=== PATIENT | male | born 1975 | race Caucasian/White ===

== ENCOUNTER → 2021-06-10 14:32 | Outpatient (BNVA) | payer MEDICARE, MEDICAID, SELFPAY | PROVIDERS: Family Provider Nurse Practitioner Family; PCP Nurse Practitioner Family; Visit Provider Internal Medicine | DX: E21.3 Hyperparathyroidism, unspecified (principal); Z87.891 Personal history of nicotine dependence | CPT/HCPCS: 99214 ==

== ENCOUNTER 2021-06-10 15:52 | Outpatient (CLI) | payer MEDICARE, MEDICAID, SELFPAY ==
[2021-06-10 16:55] LABS: Ionized Calcium 1.2 mmol/L (1.1-1.4)
[2021-06-10 18:29] LABS: Calcium 9.4 mg/dL (8.5-10.5)
[2021-06-10 18:35] LABS: Parathyroid Hormone 64.8 pg/mL (15-65)
[2021-06-10 20:08] LABS: Anion Gap 16.9 (5-19); Blood Urea Nitrogen 10 mg/dL (6-20); Calcium 9.4 mg/dL (8.5-10.5); Carbon Dioxide 23 mmol/L (22-29); Chloride 104 mmol/L (98-107); Glomerular Filtration Rate 91.3 mL/min (90-130); Glucose 100 mg/dL (65-115); Osmolality Calculated 289 mOsm/kg (285-295); Potassium 3.9 mmol/L (3.5-5.1); Sodium 140 mmol/L (136-145)
[2021-06-10 20:24] LABS: 25 Hydroxy Vitamin D 29 ng/mL (30-100)
== END 2021-06-10 15:53 | disposition home or self-care (01) ==
PROVIDERS: PCP Nurse Practitioner Family; Visit Provider Internal Medicine
DX: E83.51 Hypocalcemia (principal)
CPT/HCPCS: 80048; 82306; 82310; 82330; 83970

== ENCOUNTER → 2022-03-10 08:56 | Outpatient (BNVA) | payer MEDICARE, MEDICAID, SELFPAY | PROVIDERS: PCP Nurse Practitioner Family; Referring Provider Registered Nurse; Visit Provider Orthopaedic Surgery | DX: M25.511 Pain in right shoulder (principal) | CPT/HCPCS: 73030; 99203 ==

== ENCOUNTER 2023-05-12 07:44 | Outpatient (CLI) | payer MEDICARE, MEDICAID, SELFPAY ==
--- NOTE | 2023-05-12 07:50 | MR_ITS ---
WS: [id number] MRI LEFT KNEE NONCONTRAST TECHNIQUE: Axial PD, coronal PD fat sat, coronal PD, sagittal PD, and sagittal PD fat-sat images obta ined. CLINICAL INFORMATION: PAIN OF L KNEE JOINT COMPARISON: None. FINDINGS: Distal quadriceps and patellar tendons are intact. Hypertrophic patella. Moderate suprapatellar effus ion. Lobulated popliteal cyst with a few septations. Popliteal cyst measures 5.1 x 1.7 cm. ACL and PCL are intact. Moderate to severe tricompartmental arthritis advanced for a patient of this age. Advanced joint space narrowing medial joint compartment with subchondral edema in the underlying tibial plateau. Chronic thinning of the medial and lateral meniscus. Complex bucket handle tear post erior horn medial meniscus with a small fragment extending into the posterior intercondylar notch. Grade III chondromalacia patella. Medial and lateral patellar retinaculum are intact. Normal lateral collateral ligament. Normal popliteus. Medial collateral ligament is intact. IMPRESSION: 1. ACL and PCL are intact. 2. Bucket-handle type tear of the posterior horn medial meniscus with fragment extending into the po sterior intercondylar notch. 3. Moderate to severe degenerative arthritis LEFT knee advanced for patient this age. 4. Advanced joint space narrowing medial joint compartment with subchondral edema in the tibial plat eau. Grade IV chondromalacia. 5. Grade III chondromalacia patella. 6. Moderate suprapatellar effusion. Lobulated popliteal cyst measuring 5.0 x 1.7 cm Outbridge grading: grade IV: full-thickness cartilage loss with underlying bone reactive changes
== END 2023-05-12 07:45 | disposition home or self-care (01) ==
LOC: RAD 07:44
PROVIDERS: PCP Nurse Practitioner Family; Visit Provider Nurse Practitioner Family
DX: M25.562 Pain in left knee (principal); S83.212A Bucket-handle tear of medial meniscus, current injury, left knee, initial encounter; X58.XXXA Exposure to other specified factors, initial encounter; M17.12 Unilateral primary osteoarthritis, left knee; M94.262 Chondromalacia, left knee; M71.22 Synovial cyst of popliteal space [Baker], left knee
CPT/HCPCS: 73721

== ENCOUNTER 2023-06-06 11:12 | Outpatient (CLI) | payer MEDICARE, MEDICAID, SELFPAY | END 2023-06-06 11:13 | disposition home or self-care (01) | LOC: SPT 11:12 | PROVIDERS: PCP Nurse Practitioner Family; Visit Provider Nurse Practitioner | DX: Z46.89 Encounter for fitting and adjustment of other specified devices (principal); M25.562 Pain in left knee | CPT/HCPCS: 20610; 97760; 99214; J1100; J2795; J3301; L1812 ==

== ENCOUNTER → 2023-07-18 08:41 | Outpatient (BNVA) | payer MEDICARE, MEDICAID, SELFPAY | PROVIDERS: PCP Nurse Practitioner Family; Visit Provider Nurse Practitioner | DX: M17.12 Unilateral primary osteoarthritis, left knee (principal); M23.321 Other meniscus derangements, posterior horn of medial meniscus, right knee | CPT/HCPCS: 99213 ==

== ENCOUNTER → 2024-12-10 13:47 | Outpatient (BNVA) | payer MEDICARE, MEDICAID, SELFPAY | PROVIDERS: PCP Nurse Practitioner Family; Visit Provider Podiatrist Foot & Ankle Surgery | DX: M79.671 Pain in right foot (principal); M72.2 Plantar fascial fibromatosis; M24.571 Contracture, right ankle | CPT/HCPCS: 73630; 99204 ==

== ENCOUNTER → 2025-01-22 10:10 | Outpatient (BNVA) | payer OTHER, MEDICAID, SELFPAY | PROVIDERS: PCP Nurse Practitioner Family; Visit Provider Podiatrist Foot & Ankle Surgery | DX: M72.2 Plantar fascial fibromatosis (principal); M24.571 Contracture, right ankle | CPT/HCPCS: 99213 ==